=== PATIENT | female | born 1980 | race Caucasian/White ===

== ENCOUNTER 2017-08-10 10:57 | Inpatient (IN) | payer OTHER ==
[2017-08-10 11:24] VITALS: BMI 27.3
--- NOTE | 2017-08-10 14:17 | HP ---
CIWA Score - CIWA Score Nausea/Vomitin Muscle Tremors: 3 Anxiety: 3 Agitation: 3 Paroxysmal Sweats: 2 Orientation: 0-Oriented Tacttile Disturbances: 2-Mild Itch/Numbness/Burn Auditory Disturbances: 2-Mild Harshness/Frighten Visual Disturbances: 2-Mild Sensitivity Headache: 2-Mild CIWA-Ar Total Score: 22 Admission ROS BHS - HPI Chief Complaint: i need help to stop drinking alcohol Allergies/Adverse Reactions: Allergies Allergy/AdvReac Type Severity Reaction Status Date / Time No Known Allergies Allergy Verified 08/10/17 14:07 History of Present Illness: this 37y years old female with alcohol dependence,cocaine and marijuana dependence,seeking detox,withdrawal symptom,never been in treatment before syncope alcohol related anxiety,depression,insomnia need help to stop drinking alcohol Exam Limitations: No Limitations - Ebola screening Have you traveled outside of the country in the last 21 days: No Have you had contact with anyone from an Ebola affected area: No Have you been sick,other than usual withdrawal symptoms: No Do you have a fever: No - Review of Systems Constitutional: Loss of Appetite, Malaise, Night Sweats, Changes in sleep, Weakness EENT: reports: Nose Congestion Respiratory: reports: No Symptoms reported Cardiac: reports: No Symptoms Reported GI: reports: Diarrhea, Nausea, Abdominal cramping : reports: No Symptoms Reported Musculoskeletal: reports: Back Pain, Muscle Pain Integumentary: reports: Dryness Neuro: reports: Headache, Tremors Endocrine: reports: No Symptoms Reported Hematology: reports: No Symptoms Reported Psychiatric: reports: Anxious (insomnia), Depressed Patient History - Patient Medical History Hx Anemia: No Hx Asthma: No Hx Chronic Obstructive Pulmonary Disease (COPD): No Hx Cancer: No Hx Cardiac Disorders: No Hx Congestive Heart Failure: No Hx Hypertension: No Hx Hypercholesterolemia: No Hx Pacemaker: No HX Cerebrovascular Accident: No Hx Seizures: No Hx Dementia: No Hx Diabetes: No Hx Gastrointestinal Disorders: No Hx Liver Disease: No Hx Genitourinary Disorders: No Hx Sexually Transmitted Disorders: No Hx Renal Disease (ESRD): No Hx Thyroid Disease: No Hx Human Immunodeficiency Virus (HIV): No (last 04/28 negative) Hx Hepatitis C: No Hx Depression: Yes Hx Suicide Attempt: Yes (overdose since age of 15) Hx Bipolar Disorder: No Hx Schizophrenia: No Other Medical History: no suicidal,no homicidal - Patient Surgical History Past Surgical History: No - PPD History Previous Implant?: Yes Documented Results: Negative w/o proof PPD to be Administered?: Yes - Reproductive History Patient is a Female of Child Bearing Age (11 -55 yrs old): Yes Patient : No - Smoking Cessation Smoking history: Never smoked - Substance & Tx. History Hx Alcohol Use: Yes Hx Substance Use: Yes Substance Use Type: Alcohol, Cocaine, Marijuana Hx Substance Use Treatment: No - Substances Abused Alcohol Route: Oral Frequency: 3-6 times per week Amount used: 1/2 pint vodka/ 750ml of wine or 6 pk beer Age of first use: 12 Date of Last Use: 08/10/17 Cocaine Route: Inhalation Frequency: 1-2 times per week Amount used: $20-40 Age of first use: 14 Date of Last Use: 08/06/17 Marijuana/Hashish Route: Smoking Frequency: 1-3 times last 30 days Amount used: $10 Age of first use: 13 Date of Last Use: 08/08/17 Family Disease History - Family Disease History Family Disease History: Other: Mother (alcohol), Sister (alcohol) Admission Physical Exam S - Vital Signs Vital Signs: Vital Signs - 24 hr 08/10/17 11:18 Temperature 97.6 F Pulse Rate 77 Respiratory 18 Rate Blood Pressure 130/77 - Physical General Appearance: Yes: Moderate Distress, Tremorous, Irritable, Sweating, Anxious HEENTM: Yes: Normal ENT Inspection, JOHNNY, Pharynx Normal Respiratory: Yes: Lungs Clear, Normal Breath Sounds, No Respiratory Distress Neck: Yes: Within Normal Limits, Supple, Trachea in good position Breast: Yes: Breast Exam Deferred Cardiology: Yes: Within Normal Limits, Regular Rhythm, Regular Rate, S1, S2 Abdominal: Yes: Within Normal Limits, Normal Bowel Sounds, Non Tender, Flat, Soft Genitourinary: Yes: Within Normal Limits Back: Yes: Within Normal Limits, Muscle Spasm Musculoskeletal: Yes: Within Normal Limits, full range of Motion, Muscle Pain Extremities: Yes: Tremors Neurological: Yes: content architect II-XII NML intact, Fully Oriented, Alert, Motor Strength 5/5 Integumentary: Yes: Dry, Other (abrasions both knees) Lymphatic: Yes: Within Normal Limits - Diagnostic (1) Alcohol dependence with uncomplicated withdrawal Current Visit: Yes Status: Acute (2) Syncope Current Visit: Yes Status: Acute (3) Multiple abrasions Current Visit: Yes Status: Acute (4) Insomnia secondary to depression with anxiety Current Visit: Yes Status: Acute Cleared for Admission [facility] - Detox or Rehab [facility] Level of Care: Medically Managed Detox Regimen/Protocol: Librium [facility] Breath Alcohol Content Breath Alcohol Content: 0.067 Urine Pregancy Test - Result Urine Test Results: Negative- NO Line Present Urine Drug Screen - Results Drug Screen Negative: No Urine Drug Screen Results: THC-Marijuana
[2017-08-10] MEDS ORDERED: P-EPHED 60MG/TRIPROLIDI 2.5MG TABLET PO PRN (14:28)
[2017-08-10] MEDS ORDERED: MENTHOL/PHENOL 1 EACH UD MM PRN (14:28)
[2017-08-10] MEDS ORDERED: chlordiazePOXIDE HCL 25 MG CAPSULE PO PRN (14:28)
[2017-08-10] MEDS ORDERED: MAG HYDROX/AL HYDROX/SIMETH 30 ML UNIT-DOSE CUP PO PRN (14:28)
[2017-08-10] MEDS ORDERED: IBUPROFEN 400 MG TABLET (FP) PO PRN (14:28)
[2017-08-10] MEDS ORDERED: MAGNESIUM CITRATE 300 ML BOTTLE PO PRN (14:28)
[2017-08-10] MEDS ORDERED: MAGNESIUM HYDROX 2400MG/30ML ORAL SUSPENSION 30 ML CUP PO PRN (14:28)
[2017-08-10] MEDS ORDERED: guaiFENesin/D-METHORPHAN HB 10 ML UNIT-DOSE CUPS PO PRN (14:28)
[2017-08-10] MEDS ORDERED: ACETAMINOPHEN 325 MG TABLET (FP) PO PRN (14:28)
[2017-08-10] MEDS ORDERED: LOPERAMIDE HCL 2 MG CAPSULE PO PRN (14:28)
[2017-08-10] MEDS ORDERED: chlordiazePOXIDE HCL 25 MG CAPSULE PO ONE (15:15)
[2017-08-10] MEDS ORDERED: chlordiazePOXIDE HCL 25 MG CAPSULE PO SCH (17:00)
[2017-08-10] MEDS ORDERED: diazePAM 5 MG TABLET PO PRN (18:45)
--- NOTE | 2017-08-10 18:47 | PN ---
[facility] Progress Note Note: Patient was started on Librium detox for alcohol. Patient vomited after first dose, as per patient she vomited because of the taste of the librium. Detox changed from librium to valium.
[2017-08-10] MEDS ORDERED: diazePAM 5 MG TABLET PO ONE (19:00)
[2017-08-10 21:30] LABS: URINE APPEARANCE CLEAR; URINE BILIRUBIN NEGATIVE (NEGATIVE); URINE BLOOD 1+ (NEGATIVE); URINE COLOR LTYELLOW; URINE GLUCOSE (UA) NEGATIVE (NEGATIVE); URINE KETONE NEGATIVE (NEGATIVE); URINE NITRITE NEGATIVE (NEGATIVE); URINE PROTEIN NEGATIVE (NEGATIVE); URINE UROBILINOGEN NEGATIVE mg/dL (0.2-1.0)
[2017-08-10 21:32] LABS: URINE LEUK ESTERASE 1+ (NEGATIVE)
[2017-08-10 21:39] LABS: EPI CELLS RARE /HPF (FEW); URINE MUCUS RARE
[2017-08-10] MEDS: diazePAM 5 MG TABLET PO SCH (22:43)
[2017-08-10] MEDS: THIAMINE HCL 100 MG TABLET (FP) PO SCH (22:43)
[2017-08-11] MEDS: diazePAM 5 MG TABLET PO SCH ×3 (05:38→22:47)
--- NOTE | 2017-08-11 10:05 | CONSULT ---
[facility] Psychiatric Consult - Data Date of interview: 08/11/17 Admission source: [facility] Identifying data: Pt. is a 37 year old single female, mother of two, unemployed and currently living with her father. This is patient's first admission to [facility]. Pt. admitted to for alcohol, cocaine, and marijuana dependence. Substance Abuse History: Following information confirmed with Ms. Smith: - Substance & Tx. History. Hx Alcohol Use: Yes. Hx Substance Use: Yes. Substance Use Type: Alcohol, Cocaine, Marijuana. Hx Substance Use Treatment: No. - Substances Abused. Alcohol. Route: Oral. Frequency: 3-6 times per week. Amount used: 1/2 pint vodka/ 750ml of wine or 6 pk beer. Age of first use: 12. Date of Last Use: 08/10/17. Cocaine. Route: Inhalation. Frequency: 1-2 times per week. Amount used: $20-40. Age of first use: 14. Date of Last Use: 08/06/17. Marijuana/Hashish. Route: Smoking. Frequency: 1-3 times last 30 days. Amount used: $10. Age of first use: 13. Date of Last Use: 08/08/17 Medical History: Denies. Psychiatric History: Reports no psychiatric hospitalization. Reports one suicide attempt at 15 years of age via overdose on "pills". Pt. reports seeing a psychiatrist at 19 years of age for depression and was started on Lexapro. Pt. reports discontinuing the medication after "a couple of months. Pt. denies current outpatient care. Physical/Sexual Abuse/Trauma History: Denies. Mental Status Exam - Mental Status Exam Alert and Oriented to: Time, Place, Person Cognitive Function: Good Patient Appearance: Well Groomed Mood: Hopeful Affect: Appropriate Patient Behavior: Appropriate, Cooperative Speech Pattern: Appropriate Voice Loudness: Normal Thought Process: Goal Oriented Thought Disorder: Not Present Hallucinations: Denies Suicidal Ideation: Denies Homicidal Ideation: Denies Insight/Judgement: Poor Sleep: Fair Appetite: Fair Muscle strength/Tone: Normal Gait/Station: Normal Psychiatric Findings - Problem List ([place] 1, 2,3) (1) Cannabis dependence Current Visit: Yes Status: Chronic (2) Alcohol dependence with uncomplicated withdrawal Current Visit: Yes Status: Chronic (3) Substance induced mood disorder Current Visit: No Status: Suspected - Initial Treatment Plan Initial Treatment Plan: Psychoeducation provided. Detoxification in progress. Observation.
[2017-08-11 10:09] LABS: HEMATOCRIT 37.5 % (32.4-45.2); HEMOGLOBIN 12.9 GM/dL (10.7-15.3); MCH 32.7 pg (25.7-33.7); MCHC 34.5 g/dl (32.0-36.0); MEAN CELL VOLUME 94.8 fl (80-96); MEAN PLT VOLUME 9.7 fl (7.5-11.1); PLATELET COUNT 231 K/MM3 (134-434); RBC 3.95 M/mm3 (3.60-5.2); RDW 13.4 % (11.6-15.6); WHITE BLOOD COUNT 6.1 K/mm3 (4.0-10.0)
[2017-08-11 10:13] LABS: CHLORIDE 106 mmol/L (98-107); POTASSIUM 4.1 mmol/L (3.5-5.1); SODIUM 139 mmol/L (136-145)
[2017-08-11 10:28] LABS: ALBUMIN 3.8 g/dl (3.4-5.0); ALK PHOS 59 U/L (45-117); ANION GAP 8 (8-16); BILIRUBIN,TOTAL 0.5 mg/dL (0.2-1.0); BLOOD UREA NITROGEN 9 mg/dL (7-18); CALCIUM 8.4 mg/dL (8.5-10.1); CO2 25 mmol/L (21-32); CREATININE 0.8 mg/dL (0.55-1.02); GLUCOSE,RANDOM 77 mg/dL (74-106); SGOT/AST 17 U/L (15-37); SGPT/ALT 18 U/L (12-78); TOT PROT 7.2 g/dl (6.4-8.2)
--- NOTE | 2017-08-11 10:31 | EKG ---
Test Reason : Blood Pressure : / mmHG Vent. Rate : 083 BPM Atrial Rate : 083 BPM P-R Int : 114 ms QRS Dur : 098 ms QT Int : 386 ms P-R-T Axes : 052 061 033 degrees QTc Int : 453 ms NORMAL SINUS RHYTHM NORMAL ECG NO PREVIOUS ECGS AVAILABLE Confirmed by MONAE WYNN MD ([id number]) on 08/11/2017 10:31:09 AM Referred By: Confirmed By:MONAE WYNN MD
--- NOTE | 2017-08-11 10:34 | PN ---
S CIWA - CIWA Score Nausea/Vomitin-Mild Nausea/No Vomiting Muscle Tremors: 4-Moderate,w/Arms Extend Anxiety: 3 Agitation: 3 Paroxysmal Sweats: 3 Orientation: 0-Oriented Tacttile Disturbances: 0-None Auditory Disturbances: 0-None Visual Disturbances: 0-None Headache: 0-None Present CIWA-Ar Total Score: 14 S Progress Note (SOAP) Subjective: nausea sweats shakes interrupted sleep Objective: 08/11/17 10:32 Vital Signs Temperature 99.1 F 08/11/17 10:00 Pulse Rate 80 08/11/17 10:00 Respiratory Rate 18 08/11/17 10:00 Blood Pressure 122/73 08/11/17 10:00 O2 Sat by Pulse Oximetry (%) Laboratory Tests 08/10/17 08/11/17 08/11/17 21:00 05:40 05:40 WBC 6.1 RBC 3.95 Hgb 12.9 Hct 37.5 MCV 94.8 MCH 32.7 MCHC 34.5 RDW 13.4 Plt Count 231 MPV 9.7 Sodium 139 Potassium 4.1 Chloride 106 Urine Color Ltyellow Urine Appearance Clear Urine pH 5.0 Ur Specific [place] 1.012 Urine Protein Negative Urine Glucose (UA) Negative Urine Ketones Negative Urine Blood 1+ H Urine Nitrite Negative Urine Bilirubin Negative Urine Urobilinogen Negative Ur Leukocyte Esterase 1+ H Urine WBC (Auto) 5 Urine RBC (Auto) 2 Ur Epithelial Cells Rare Urine Mucus Rare aaox3 ambulating no acute distress Assessment: 08/11/17 10:33 withdrawal sx Plan: continue detox increase fluids
[2017-08-11] MEDS: PRENATAL VITAMINS W/ FOLIC ACID TABLET (FP) PO SCH (10:41)
[2017-08-11] MEDS: BACITRACIN 0.9 GM PACKET TP SCH ×2 (10:41→22:46)
[2017-08-11] MEDS ORDERED: chlordiazePOXIDE HCL 25 MG CAPSULE PO SCH (17:00)
[2017-08-11] MEDS: hydrOXYzine PAMOATE 50 MG CAPSULE (FP) PO PRN ×2 (18:18→22:46)
[2017-08-11] MEDS: NON-FORMULARY MED PO SCH (20:06)
[2017-08-11] MEDS: THIAMINE HCL 100 MG TABLET (FP) PO SCH (22:46)
[2017-08-12] MEDS: diazePAM 5 MG TABLET PO SCH ×2 (10:36→22:34)
[2017-08-12] MEDS: NON-FORMULARY MED PO SCH (10:36)
[2017-08-12] MEDS: BACITRACIN 0.9 GM PACKET TP SCH ×2 (10:36→22:34)
[2017-08-12] MEDS: PRENATAL VITAMINS W/ FOLIC ACID TABLET (FP) PO SCH (10:36)
--- NOTE | 2017-08-12 16:13 | PN ---
S CIWA - CIWA Score Nausea/Vomitin Muscle Tremors: 3 Anxiety: 3 Agitation: 2 Paroxysmal Sweats: 1-Minimal Palms Moist Orientation: 0-Oriented Tacttile Disturbances: 1-Very Mild Itch/Numbness Auditory Disturbances: 1-Very Mild Visual Disturbances: 1-Very Mild Sensitivity Headache: 2-Mild CIWA-Ar Total Score: 17 BHS Progress Note (SOAP) Subjective: ALERT,IRRITABLE,ANXIOUS,INTERRUPTED SLEEP,TREMOR Objective: 08/12/17 16:10 Vital Signs Temperature 98.4 F 08/12/17 11:52 Pulse Rate 75 08/12/17 11:52 Respiratory Rate 18 08/12/17 11:52 Blood Pressure 117/77 08/12/17 11:52 O2 Sat by Pulse Oximetry (%) EKG NSR,NORMAL ECG Laboratory Last Values WBC 6.1 K/mm3 (4.0-10.0) 08/11/17 05:40 RBC 3.95 M/mm3 (3.60-5.2) 08/11/17 05:40 Hgb 12.9 GM/dL (10.7-15.3) 08/11/17 05:40 Hct 37.5 % (32.4-45.2) 08/11/17 05:40 MCV 94.8 fl (80-96) 08/11/17 05:40 MCH 32.7 pg (25.7-33.7) 08/11/17 05:40 MCHC 34.5 g/dl (32.0-36.0) 08/11/17 05:40 RDW 13.4 % (11.6-15.6) 08/11/17 05:40 Plt Count 231 K/MM3 (134-434) 08/11/17 05:40 MPV 9.7 fl (7.5-11.1) 08/11/17 05:40 Sodium 139 mmol/L (136-145) 08/11/17 05:40 Potassium 4.1 mmol/L (3.5-5.1) 08/11/17 05:40 Chloride 106 mmol/L (98-107) 08/11/17 05:40 Carbon Dioxide 25 mmol/L (21-32) 08/11/17 05:40 Anion Gap 8 (8-16) 08/11/17 05:40 BUN 9 mg/dL (7-18) 08/11/17 05:40 Creatinine 0.8 mg/dL (0.55-1.02) 08/11/17 05:40 Creat Clearance w eGFR > 60 (>60) 08/11/17 05:40 Random Glucose 77 mg/dL (74-106) 08/11/17 05:40 Calcium 8.4 mg/dL (8.5-10.1) L 08/11/17 05:40 Total Bilirubin 0.5 mg/dL (0.2-1.0) 08/11/17 05:40 AST 17 U/L (15-37) 08/11/17 05:40 ALT 18 U/L (12-78) 08/11/17 05:40 Alkaline Phosphatase 59 U/L (45-117) 08/11/17 05:40 Total Protein 7.2 g/dl (6.4-8.2) 08/11/17 05:40 Albumin 3.8 g/dl (3.4-5.0) 08/11/17 05:40 Urine Color Ltyellow 08/10/17 21:00 Urine Appearance Clear 08/10/17 21:00 Urine pH 5.0 (5.0-8.0) 08/10/17 21:00 Ur Specific [place] 1.012 (1.001-1.035) 08/10/17 21:00 Urine Protein Negative (NEGATIVE) 08/10/17 21:00 Urine Glucose (UA) Negative (NEGATIVE) 08/10/17 21:00 Urine Ketones Negative (NEGATIVE) 08/10/17 21:00 Urine Blood 1+ (NEGATIVE) H 08/10/17 21:00 Urine Nitrite Negative (NEGATIVE) 08/10/17 21:00 Urine Bilirubin Negative (NEGATIVE) 08/10/17 21:00 Urine Urobilinogen Negative mg/dL (0.2-1.0) 08/10/17 21:00 Ur Leukocyte Esterase 1+ (NEGATIVE) H 08/10/17 21:00 Urine WBC (Auto) 5 /hpf (3-5) 08/10/17 21:00 Urine RBC (Auto) 2 /hpf (0-3) 08/10/17 21:00 Ur Epithelial Cells Rare /HPF (FEW) 08/10/17 21:00 Urine Mucus Rare 08/10/17 21:00 RPR Titer Nonreactive (NONREACTIVE) 08/11/17 05:40 Assessment: 08/12/17 16:12 WITHDRAWAL SYMPTOM Plan: CONTINUE DETOX
[2017-08-12] MEDS ORDERED: chlordiazePOXIDE 5 MG CAPSULE PO SCH (17:00)
[2017-08-12] MEDS: THIAMINE HCL 100 MG TABLET (FP) PO SCH (22:34)
[2017-08-12] MEDS: hydrOXYzine PAMOATE 50 MG CAPSULE (FP) PO PRN (22:34)
[2017-08-13] MEDS: diazePAM 5 MG TABLET PO SCH ×2 (10:20→22:41)
[2017-08-13] MEDS: PRENATAL VITAMINS W/ FOLIC ACID TABLET (FP) PO SCH (10:20)
[2017-08-13] MEDS: NON-FORMULARY MED PO SCH (10:20)
[2017-08-13] MEDS: BACITRACIN 0.9 GM PACKET TP SCH ×2 (10:20→22:41)
--- NOTE | 2017-08-13 13:05 | PN ---
[facility] Progress Note (SOAP) Subjective: alert oriented x 3 no acute distress no tremor less sweat Objective: 08/13/17 13:06 Vital Signs Temperature 99.7 F H 08/13/17 10:51 Pulse Rate 87 08/13/17 10:51 Respiratory Rate 18 08/13/17 10:51 Blood Pressure 111/65 08/13/17 10:51 O2 Sat by Pulse Oximetry (%) Laboratory Last Values WBC 6.1 K/mm3 (4.0-10.0) 08/11/17 05:40 RBC 3.95 M/mm3 (3.60-5.2) 08/11/17 05:40 Hgb 12.9 GM/dL (10.7-15.3) 08/11/17 05:40 Hct 37.5 % (32.4-45.2) 08/11/17 05:40 MCV 94.8 fl (80-96) 08/11/17 05:40 MCH 32.7 pg (25.7-33.7) 08/11/17 05:40 MCHC 34.5 g/dl (32.0-36.0) 08/11/17 05:40 RDW 13.4 % (11.6-15.6) 08/11/17 05:40 Plt Count 231 K/MM3 (134-434) 08/11/17 05:40 MPV 9.7 fl (7.5-11.1) 08/11/17 05:40 Sodium 139 mmol/L (136-145) 08/11/17 05:40 Potassium 4.1 mmol/L (3.5-5.1) 08/11/17 05:40 Chloride 106 mmol/L (98-107) 08/11/17 05:40 Carbon Dioxide 25 mmol/L (21-32) 08/11/17 05:40 Anion Gap 8 (8-16) 08/11/17 05:40 BUN 9 mg/dL (7-18) 08/11/17 05:40 Creatinine 0.8 mg/dL (0.55-1.02) 08/11/17 05:40 Creat Clearance w eGFR > 60 (>60) 08/11/17 05:40 Random Glucose 77 mg/dL (74-106) 08/11/17 05:40 Calcium 8.4 mg/dL (8.5-10.1) L 08/11/17 05:40 Total Bilirubin 0.5 mg/dL (0.2-1.0) 08/11/17 05:40 AST 17 U/L (15-37) 08/11/17 05:40 ALT 18 U/L (12-78) 08/11/17 05:40 Alkaline Phosphatase 59 U/L (45-117) 08/11/17 05:40 Total Protein 7.2 g/dl (6.4-8.2) 08/11/17 05:40 Albumin 3.8 g/dl (3.4-5.0) 08/11/17 05:40 Urine Color Ltyellow 08/10/17 21:00 Urine Appearance Clear 08/10/17 21:00 Urine pH 5.0 (5.0-8.0) 08/10/17 21:00 Ur Specific [place] 1.012 (1.001-1.035) 08/10/17 21:00 Urine Protein Negative (NEGATIVE) 08/10/17 21:00 Urine Glucose (UA) Negative (NEGATIVE) 08/10/17 21:00 Urine Ketones Negative (NEGATIVE) 08/10/17 21:00 Urine Blood 1+ (NEGATIVE) H 08/10/17 21:00 Urine Nitrite Negative (NEGATIVE) 08/10/17 21:00 Urine Bilirubin Negative (NEGATIVE) 08/10/17 21:00 Urine Urobilinogen Negative mg/dL (0.2-1.0) 08/10/17 21:00 Ur Leukocyte Esterase 1+ (NEGATIVE) H 08/10/17 21:00 Urine WBC (Auto) 5 /hpf (3-5) 08/10/17 21:00 Urine RBC (Auto) 2 /hpf (0-3) 08/10/17 21:00 Ur Epithelial Cells Rare /HPF (FEW) 08/10/17 21:00 Urine Mucus Rare 08/10/17 21:00 RPR Titer Nonreactive (NONREACTIVE) 08/11/17 05:40 lab noted Assessment: 08/13/17 13:07 mild withdrawal sx Plan: medically supervised detox
[2017-08-13] MEDS: hydrOXYzine PAMOATE 50 MG CAPSULE (FP) PO PRN ×2 (15:15→20:28)
[2017-08-13] MEDS ORDERED: chlordiazePOXIDE HCL 10 MG CAPSULE PO SCH (17:00)
[2017-08-13] MEDS: THIAMINE HCL 100 MG TABLET (FP) PO SCH (22:41)
[2017-08-14 06:42] VITALS: BP 115/92; PULSE 80; TEMP 97.9
--- NOTE | 2017-08-14 08:41 | DS ---
[facility] Detox Discharge Summary Admission Date: 08/10/17 Discharge Date: 08/14/17 - History Present History: Alcohol Dependence - Physical Exam Results Vital Signs: Vital Signs Temperature 97.9 F 08/14/17 06:00 Pulse Rate 80 08/14/17 06:00 Respiratory Rate 18 08/14/17 06:00 Blood Pressure 115/92 08/14/17 06:00 O2 Sat by Pulse Oximetry (%) Pertinent Admission Physical Exam Findings: withdrawal sx Laboratory Last Values WBC 6.1 K/mm3 (4.0-10.0) 08/11/17 05:40 RBC 3.95 M/mm3 (3.60-5.2) 08/11/17 05:40 Hgb 12.9 GM/dL (10.7-15.3) 08/11/17 05:40 Hct 37.5 % (32.4-45.2) 08/11/17 05:40 MCV 94.8 fl (80-96) 08/11/17 05:40 MCH 32.7 pg (25.7-33.7) 08/11/17 05:40 MCHC 34.5 g/dl (32.0-36.0) 08/11/17 05:40 RDW 13.4 % (11.6-15.6) 08/11/17 05:40 Plt Count 231 K/MM3 (134-434) 08/11/17 05:40 MPV 9.7 fl (7.5-11.1) 08/11/17 05:40 Sodium 139 mmol/L (136-145) 08/11/17 05:40 Potassium 4.1 mmol/L (3.5-5.1) 08/11/17 05:40 Chloride 106 mmol/L (98-107) 08/11/17 05:40 Carbon Dioxide 25 mmol/L (21-32) 08/11/17 05:40 Anion Gap 8 (8-16) 08/11/17 05:40 BUN 9 mg/dL (7-18) 08/11/17 05:40 Creatinine 0.8 mg/dL (0.55-1.02) 08/11/17 05:40 Creat Clearance w eGFR > 60 (>60) 08/11/17 05:40 Random Glucose 77 mg/dL (74-106) 08/11/17 05:40 Calcium 8.4 mg/dL (8.5-10.1) L 08/11/17 05:40 Total Bilirubin 0.5 mg/dL (0.2-1.0) 08/11/17 05:40 AST 17 U/L (15-37) 08/11/17 05:40 ALT 18 U/L (12-78) 08/11/17 05:40 Alkaline Phosphatase 59 U/L (45-117) 08/11/17 05:40 Total Protein 7.2 g/dl (6.4-8.2) 08/11/17 05:40 Albumin 3.8 g/dl (3.4-5.0) 08/11/17 05:40 Urine Color Ltyellow 08/10/17 21:00 Urine Appearance Clear 08/10/17 21:00 Urine pH 5.0 (5.0-8.0) 08/10/17 21:00 Ur Specific [place] 1.012 (1.001-1.035) 08/10/17 21:00 Urine Protein Negative (NEGATIVE) 08/10/17 21:00 Urine Glucose (UA) Negative (NEGATIVE) 08/10/17 21:00 Urine Ketones Negative (NEGATIVE) 08/10/17 21:00 Urine Blood 1+ (NEGATIVE) H 08/10/17 21:00 Urine Nitrite Negative (NEGATIVE) 08/10/17 21:00 Urine Bilirubin Negative (NEGATIVE) 08/10/17 21:00 Urine Urobilinogen Negative mg/dL (0.2-1.0) 08/10/17 21:00 Ur Leukocyte Esterase 1+ (NEGATIVE) H 08/10/17 21:00 Urine WBC (Auto) 5 /hpf (3-5) 08/10/17 21:00 Urine RBC (Auto) 2 /hpf (0-3) 08/10/17 21:00 Ur Epithelial Cells Rare /HPF (FEW) 08/10/17 21:00 Urine Mucus Rare 08/10/17 21:00 RPR Titer Nonreactive (NONREACTIVE) 08/11/17 05:40 lab noted - Treatment Hospital Course: Detox Protocol Followed, Detoxed Safely, Responded well, Discharged Condition Good, Rehab Referral Accepted Patient has Accepted a Rehab Referral to: [facility] - Diagnosis (1) Alcohol dependence with uncomplicated withdrawal Current Visit: Yes Status: Acute (2) Substance induced mood disorder Current Visit: Yes Status: Suspected - AMA Did Patient Leave Against Medical Advice: No
[2017-08-14] MEDS ORDERED: diazePAM 5 MG TABLET PO SCH (10:00)
[2017-08-14] MEDS: PRENATAL VITAMINS W/ FOLIC ACID TABLET (FP) PO SCH (10:47)
[2017-08-14] MEDS: NON-FORMULARY MED PO SCH (10:48)
== END 2017-08-14 10:51 | disposition home or self-care (01) | DRG 775 ==
LOC: YASAS 10:57 → Y6N 14:47
PROVIDERS: ADMIT Internal Medicine; ATTEND Internal Medicine
PROC: HZ2ZZZZ Detoxification Services for Substance Abuse Treatment (ICD-10-PCS; principal; 2017-08-10)
DX: F10.230 Alcohol dependence with withdrawal, uncomplicated (principal); F12.20 Cannabis dependence, uncomplicated; F19.24 Other psychoactive substance dependence with psychoactive substance-induced mood disorder; F51.05 Insomnia due to other mental disorder; Z91.5 Personal history of self-harm
CPT/HCPCS: 36415; 80053; 81003; 81015; 85027; 86593; 93005; 93010